=== PATIENT | female | born 1965 | race Caucasian/White ===

== ENCOUNTER → 2017-04-21 | Outpatient (CLI) | payer BC | LOC: BMCIMAGING 07:41 | PROVIDERS: ATTEND Registered Nurse General Practice | DX: I86.2 Pelvic varices (principal); R10.11 Right upper quadrant pain ==

== ENCOUNTER → 2018-01-28 | Outpatient (CLI) | payer BC | LOC: BMCIMAGING 17:03 | PROVIDERS: ATTEND Family Medicine | DX: R93.6 Abnormal findings on diagnostic imaging of limbs (principal); Y93.23 Activity, snow (alpine) (downhill) skiing, snowboarding, sledding, tobogganing and snow tubing; V00.321A Fall from snow-skis, initial encounter ==

== ENCOUNTER → 2018-03-10 | Outpatient (CLI) | payer BC | LOC: FIMAGING 14:36 | PROVIDERS: ATTEND Orthopaedic Surgery Hand Surgery | DX: S62.015K Nondisplaced fracture of distal pole of navicular [scaphoid] bone of left wrist, subsequent encounter for fracture with nonunion (principal) ==

== ENCOUNTER → 2018-07-11 | Outpatient (CLI) | payer BC | LOC: FIMAGING 09:27 | PROVIDERS: ATTEND Orthopaedic Surgery Hand Surgery | DX: S62.032K Displaced fracture of proximal third of navicular [scaphoid] bone of left wrist, subsequent encounter for fracture with nonunion (principal) ==

== ENCOUNTER → 2018-09-26 | Outpatient (CLI) | payer BC | LOC: BMCIMAGING 15:18 | PROVIDERS: ATTEND Orthopaedic Surgery Hand Surgery | DX: S62.015D Nondisplaced fracture of distal pole of navicular [scaphoid] bone of left wrist, subsequent encounter for fracture with routine healing (principal) ==

== ENCOUNTER → 2018-11-15 | Outpatient (CLI) | payer BC | LOC: BMCIMAGING 09:27 | PROVIDERS: ATTEND Orthopaedic Surgery Hand Surgery | DX: S62.035D Nondisplaced fracture of proximal third of navicular [scaphoid] bone of left wrist, subsequent encounter for fracture with routine healing (principal); M19.032 Primary osteoarthritis, left wrist ==

== ENCOUNTER → 2019-03-20 | Outpatient (CLI) | payer BC | LOC: FIMAGING 07:53 ==